=== PATIENT | female | born 1955 ===

== ENCOUNTER 2024-06-19 09:18 | Day surgery (SDC) | payer MEDICARE, OTHER ==
[~2024-06-19] VITALS: Ht 149.9 cm; Wt 67.7 kg
[~2024-06-19 09:18] MED LIST: Lactated Ringer's 1,000 ML IV ONE; propofoL 50 ML IV ONE
[2024-06-19] MEDS ORDERED: Lactated Ringer's 1,000 ML IV ONE (09:30)
[2024-06-19] MEDS ORDERED: GABA100 (09:52)
[2024-06-19] MEDS ORDERED: Prozac40 MG PO (09:53)
[2024-06-19] MEDS ORDERED: ERGO50000 PO (09:53)
== END 2024-06-19 11:21 | disposition home or self-care (01) ==
LOC: ORSCSDS 09:18
DX: R10.9 Unspecified abdominal pain (principal); R63.4 Abnormal weight loss; F43.10 Post-traumatic stress disorder, unspecified; M79.7 Fibromyalgia; R19.4 Change in bowel habit; Z79.899 Other long term (current) drug therapy
CPT/HCPCS: 88305; 88342; J2704; J7120